=== PATIENT | female | born 1980 | race Two or more races ===

== ENCOUNTER 2016-11-26 11:05 | Emergency (ER) | payer OTHER ==
[~2016-11-26] VITALS: Ht 144.8 cm; Wt 59.3 kg
[~2016-11-26 11:05] MED LIST: ADVAIR 250/501 DISK IH; BENADRYL50 MG PO; FLEXERIL10 MG PO; INDOCIN50 MG PO; MOTRIN600 MG PO; Motrin PO; NATALCARE RX1 TABLET PO; PERCOCET 5/31 TABLET PO; Percocet 5/325,Endoc PO; SINGULAIR10 MG PO; SKELAXIN800 MG PO; VENTOLIN HFA18 GM IH; ZYRTEC10 M2 PO
[2016-11-26 12:11] LABS: ADD MIUA? YES; BILIRUBIN NEGATIVE; BLOOD LARGE; COLOR YELLOW ((YELLOW)); GLUCOSE (STRIP) NEGATIVE; KETONES NEGATIVE; LEUKOCYTES NEGATIVE; NITRITE NEGATIVE; PROTEIN (STRIP) NEGATIVE; SPECIFIC GRAVITY 1.006 (1.000-1.030); UROBILINOGEN 0.2 MG/DL (0.2-1.0)
[2016-11-26 12:15] LABS: HEMATOCRIT 40.4 % (36.0-46.0); MCH 30.6 PG (29.0-34.0); MCHC 33.4 G/DL (30.0-36.0); MCV 91.6 FL (83-99); MEAN PLAT.VOLUME 10.5 uM^3 (9.5-12.4); PLATELET COUNT 237 K/uL (156-360); RBC DIS.WIDTH-CV 12.7 % (11.8-14.6); RBC DIS.WIDTH-SD 41.8 % (39-53); RED BLOOD COUNT 4.41 M/uL (3.80-5.20); WHITE BLOOD COUNT 8.1 K/uL (4.1-10.2)
[2016-11-26 12:21] LABS: BACTERIA RARE /HPF; EPITHELIAL CELLS RARE /HPF; MUCUS TRACE /LPF; UCUL ADDED? NO; WHITE BLOOD CELLS 0-5 /HPF (0-5)
[2016-11-26] MEDS ORDERED: NORCO 5/3251 TABLET PO (14:59)
[2016-11-26 15:45] VITALS: BP 121/67
== END 2016-11-26 15:46 | disposition home or self-care (01) ==
LOC: EME 11:05
DX: O20.0 Threatened abortion (principal); O20.9 Hemorrhage in early pregnancy, unspecified; Z3A.01 Less than 8 weeks gestation of pregnancy; O99.331 Smoking (tobacco) complicating pregnancy, first trimester; J45.909 Unspecified asthma, uncomplicated; Z87.440 Personal history of urinary (tract) infections
CPT/HCPCS: 76801; 81003; 84702; 85027; 86900; 86901; 99281; 99284

== ENCOUNTER → 2016-12-08 | Outpatient (CLI) | payer SELFPAY ==
[~2016-12-08] MED LIST changes: +NORCO 5/3251 TABLET PO
== END | disposition home or self-care (01) ==
LOC: RAD 13:50
DX: O20.0 Threatened abortion (principal); Z3A.00 Weeks of gestation of pregnancy not specified
CPT/HCPCS: 76801

== ENCOUNTER 2018-05-05 06:44 | Inpatient (IN) | payer MEDICARE ==
[~2018-05-05] VITALS: Ht 144.8 cm; Wt 79.8 kg
[2018-05-05] VITALS (8 sets, daily range): BP systolic 99–126; BP diastolic 54–66
[~2018-05-05 06:44] MED LIST changes: +PRENATAL TABLE1 EAC3 PO; +PROAIR HFA8.5 GM IH; +TUMS500 MG PO
[2018-05-05 08:12] LABS: BASOPHIL (%) 0.3 % (0-1); EOSINOPHIL COUNT 0.2 K/uL (0-0.3); HEMATOCRIT 31.4 % (36.0-46.0); HEMOGLOBIN 9.7 G/DL (11.9-15.5); IMMATURE GRANULOCYTE (%) 1.4 % (0.0-0.7); LYMPHOCYTE (%) 14.1 % (15-42); LYMPHOCYTE COUNT 1.5 K/uL (1.0-2.8); MCH 26.5 PG (29.0-34.0); MCHC 30.9 G/DL (30.0-36.0); MCV 85.8 FL (83-99); MONOCYTE (%) 8.5 % (3-12); MONOCYTE COUNT 0.9 K/uL (0-0.8); NEUTROPHIL (%) 73.7 % (45-76); NEUTROPHIL COUNT 7.6 K/uL (1.8-6.4); PLATELET COUNT 199 K/uL (156-360); RBC DIS.WIDTH-CV 15.6 % (11.8-14.6); RBC DIS.WIDTH-SD 49.1 % (39-53); RED BLOOD COUNT 3.66 M/uL (3.80-5.20); WHITE BLOOD COUNT 10.4 K/uL (4.1-10.2)
[2018-05-05 08:32] LABS: AMPHETAMINE NEGATIVE (500 ng/mL); BARBITURATES NEGATIVE (200 ng/mL); BENZODIAZEPINES NEGATIVE (150 ng/mL); BUPRENORPHINE NEGATIVE (10 ng/mL); COCAINE NEGATIVE (150 ng/mL); METHADONE NEGATIVE (200 ng/mL); METHAMPHETAMINE NEGATIVE (500 ng/mL); OPIATES (MORPHINE) NEGATIVE (100 ng/mL); OXYCODONE NEGATIVE (100 ng/mL); PHENCYCLIDINE NEGATIVE (25 ng/mL); PROPOXYPHENE NEGATIVE (300 ng/mL); THC CANNABINOIDS NEGATIVE (50 ng/mL); TRICYCLIC ANTIDEPRESSANTS NEGATIVE (300 ng/mL)
[2018-05-05 08:33] LABS: CHLORIDE 101 MEQ/L (99-109); POTASSIUM 3.9 MEQ/L (3.7-5.4); SODIUM 135 MEQ/L (136-147)
[2018-05-05 08:38] LABS: CREATININE 0.6 MG/DL (0.6-1.3); GFR ESTIMATE (CALCULATED) > 59 mL/min/; GLUCOSE 97 mg/dL (70-99); UREA NITROGEN (BUN) 9 mg/dL (9-23)
[2018-05-05 16:02] LABS: HEMATOCRIT 29.2 % (36.0-46.0); HEMOGLOBIN 9.3 G/DL (11.9-15.5); MCV 84.1 FL (83-99)
[2018-05-05 16:34] LABS: ALBUMIN 2.7 G/DL (3.2-4.8); ALKALINE PHOSPHATASE 115 IU/L (3-129); ALT (GPT) 9 IU/L (3-49); AST (GOT) 13 IU/L (2-34); CHLORIDE 105 MEQ/L (99-109); CREATININE 0.5 MG/DL (0.6-1.3); GFR ESTIMATE (CALCULATED) > 59 mL/min/; GLUCOSE 96 mg/dL (70-99); POTASSIUM 4.2 MEQ/L (3.7-5.4); SODIUM 138 MEQ/L (136-147); TOTAL BILIRUBIN 0.5 MG/DL (0.0-1.0); TOTAL PROTEIN 5.3 G/DL (6.4-8.3); UREA NITROGEN (BUN) 7 mg/dL (9-23)
[2018-05-06 03:07] VITALS: BP 106/54
[2018-05-06 06:04] LABS: BASOPHIL (%) 0.1 % (0-1); EOSINOPHIL COUNT 0.1 K/uL (0-0.3); HEMATOCRIT 26.4 % (36.0-46.0); HEMOGLOBIN 8.1 G/DL (11.9-15.5); IMMATURE GRANULOCYTE (%) 0.8 % (0.0-0.7); LYMPHOCYTE (%) 9.3 % (15-42); LYMPHOCYTE COUNT 1.3 K/uL (1.0-2.8); MCH 26.3 PG (29.0-34.0); MCHC 30.7 G/DL (30.0-36.0); MCV 85.7 FL (83-99); MONOCYTE (%) 8.2 % (3-12); MONOCYTE COUNT 1.1 K/uL (0-0.8); NEUTROPHIL (%) 80.6 % (45-76); NEUTROPHIL COUNT 10.9 K/uL (1.8-6.4); PLATELET COUNT 177 K/uL (156-360); RBC DIS.WIDTH-CV 15.9 % (11.8-14.6); RBC DIS.WIDTH-SD 48.8 % (39-53); RED BLOOD COUNT 3.08 M/uL (3.80-5.20); WHITE BLOOD COUNT 13.6 K/uL (4.1-10.2)
[2018-05-06 19:13] VITALS: BP 117/59
[2018-05-06 22:33] VITALS: BP 111/59
[2018-05-07 03:44] VITALS: BP 117/56
[2018-05-07 07:38] VITALS: BP 119/68
[2018-05-07] MEDS ORDERED: ENDOCET 5-3251 EACH PO (09:25)
[2018-05-07] MEDS ORDERED: CHROMAGEN,1 CAPSULE PO (09:25)
[2018-05-07] MEDS ORDERED: IBUPROFEN800 MG PO (09:25)
[2018-05-07 10:31] VITALS: BP 125/67
[2018-05-07 15:19] VITALS: BP 125/72
== END 2018-05-07 16:54 | disposition home or self-care (01) | DRG 765 ==
LOC: 2WEST 06:44 → 2SOUTH 08:38 → 2WEST 05-07 16:54
PROVIDERS: Obstetrics & Gynecology
DX: O34.211 Maternal care for low transverse scar from previous cesarean delivery (principal); O24.420 Gestational diabetes mellitus in childbirth, diet controlled; O99.824 Streptococcus B carrier state complicating childbirth; D62 Acute posthemorrhagic anemia; O99.02 Anemia complicating childbirth; O75.4 Other complications of obstetric surgery and procedures; I49.8 Other specified cardiac arrhythmias; Z37.0 Single live birth; Z3A.39 39 weeks gestation of pregnancy; Z30.2 Encounter for sterilization; O69.2XX0 Labor and delivery complicated by other cord entanglement, with compression, not applicable or unspecified
CPT/HCPCS: 80048; 80053; 82948; 85014; 85018; 85025; 86850; 86900; 86901; 87086; 88302; 88307; 93005; J0690; J1170; J1885; J2274; J2405; J2765; J3010; J7120; S0020